=== PATIENT | female | born 1980 | race Hispanic/Latino ===

== ENCOUNTER 2018-05-16 09:25 | Emergency (ER) | payer SELFPAY ==
[2018-05-16 09:58] LABS: APPEARANCE,URINE Clear (CLEAR); BILIRUBIN,URINE Negative (NEGATIVE); COLOR,URINE Yellow (YELLOW); GLUCOSE, URINE (UA) Negative (NEGATIVE); KETONES,URINE Negative (NEGATIVE); LEUKOCYTE ESTERASE ,URINE Negative (NEGATIVE); NITRATE,URINE Negative (NEGATIVE); OCCULT BLOOD,URINE Negative (NEGATIVE); PH,URINE 7.5 (5.0-8.0); PROTEIN,URINE Negative (NEGATIVE); UROBILINOGEN,URINE 0.2 mg/dL (0.2-1.0)
[2018-05-16 10:07] LABS: HCG,QUAL RESULT NEGATIVE (NEGATIVE)
[2018-05-16] MEDS ORDERED: LIDOCAINE HCL-MPF 1% 2ML VIAL ONE (10:20)
[2018-05-16] MEDS ORDERED: CEFTRIAXONE SODIUM 500 MG VIAL ONE (10:20)
[2018-05-16] MEDS ORDERED: AZITHROMYCIN 250 MG TABLET PO ONE (10:21)
== END 2018-05-16 10:40 | disposition home or self-care (01) ==
LOC: EDH 09:25
DX: N34.2 Other urethritis (principal); I10 Essential (primary) hypertension; Z88.1 Allergy status to other antibiotic agents
CPT/HCPCS: 81003; 81025; 87088; 87486; 87797; 96372; 99283; J0696; J3490

== ENCOUNTER 2018-06-13 20:50 | Emergency (ER) | payer OTHER ==
[2018-06-13] MEDS ORDERED: AMOXICILLIN/POTASSIUM CLAV 500-125 TABLET PO ONE (21:13)
[2018-06-13] MEDS ORDERED: ACETAMINOPHEN EXTRA STRENGTH 500 MG TABLET ONE (21:13)
== END 2018-06-13 21:26 | disposition home or self-care (01) ==
LOC: EDH 20:50
DX: S50.11XA Contusion of right forearm, initial encounter (principal); L08.9 Local infection of the skin and subcutaneous tissue, unspecified; Z72.0 Tobacco use; W50.3XXA Accidental bite by another person, initial encounter; Y93.89 Activity, other specified; Y92.89 Other specified places as the place of occurrence of the external cause; Y99.8 Other external cause status

== ENCOUNTER 2019-04-23 11:34 | Emergency (ER) | payer SELFPAY ==
[2019-04-23] MEDS ORDERED: BENZOCAINE/LANOLIN/ALOE VERA 60 ML AEROSOL TP ONE (12:06)
== END 2019-04-23 12:55 | disposition home or self-care (01) ==
LOC: EDH 11:34
DX: S01.01XA Laceration without foreign body of scalp, initial encounter (principal); I10 Essential (primary) hypertension; W18.09XA Striking against other object with subsequent fall, initial encounter; Y93.89 Activity, other specified; Y92.89 Other specified places as the place of occurrence of the external cause; Y99.8 Other external cause status
CPT/HCPCS: 12002; 99282

== ENCOUNTER 2019-04-30 13:52 | Emergency (ER) | payer SELFPAY | END 2019-04-30 14:13 | disposition home or self-care (01) | LOC: EDH 13:52 | DX: S01.01XD Laceration without foreign body of scalp, subsequent encounter (principal); I10 Essential (primary) hypertension; Z98.890 Other specified postprocedural states; Z87.891 Personal history of nicotine dependence; X58.XXXD Exposure to other specified factors, subsequent encounter | CPT/HCPCS: 99281 ==

== ENCOUNTER 2020-08-12 07:12 | Emergency (ER) | payer OTHER ==
[~2020-08-12] VITALS: Ht 152.4 cm; Wt 68.9 kg
[2020-08-12 07:13] VITALS: BP 142/97
[2020-08-12 07:39] LABS: BASOPHILS % (AUTO) 0.4 % (0.0-5.0); EOSINOPHILS % (AUTO) 1.9 % (0.0-8.0); HEMATOCRIT 36.2 % (36-48); LYMPHOCYTES % (AUTO) 34.8 % (21.0-51.0); MEAN CORPUSCULAR HEMOGLOBIN 27.4 pg (27.0-33.0); MEAN CORPUSCULAR HGB CONC 31.5 g/dL (32.0-36.0); MONOCYTES % (AUTO) 6.7 % (3.0-13.0); NEUTROPHILS % (AUTO) 56.2 % (40.0-77.0); PLATELET COUNT (AUTO) 231 K/uL (130-400); RED BLOOD CELL COUNT(AUTO) 4.16 MIL/uL (4.00-5.50); RED CELL DISTRIBUTION WIDTH 13.9 % (11.0-15.5); WHITE BLOOD COUNT (AUTO) 5.3 K/uL (4.8-10.8)
[2020-08-12 07:41] LABS: APPEARANCE,URINE Clear (CLEAR); BILIRUBIN,URINE Negative (NEGATIVE); COLOR,URINE Yellow (YELLOW); GLUCOSE, URINE (UA) Negative (NEGATIVE); KETONES,URINE Negative (NEGATIVE); LEUKOCYTE ESTERASE ,URINE Negative (NEGATIVE); NITRATE,URINE Negative (NEGATIVE); OCCULT BLOOD,URINE Moderate (NEGATIVE); PH,URINE 6.5 (5.0-8.0); PROTEIN,URINE Negative (NEGATIVE); UROBILINOGEN,URINE 0.2 mg/dL (0.2-1.0)
[2020-08-12 07:56] LABS: ALBUMIN 3.4 g/dL (3.5-5.0); BILIRUBIN,TOTAL 0.2 mg/dL (0.2-1.0); CREATININE 0.8 mg/dL (0.5-1.5); POTASSIUM 3.5 mmol/L (3.5-5.1); TOTAL PROTEIN, SERUM 7.3 g/dL (6.0-8.3)
[2020-08-12 08:25] LABS: RBC,URINE 0-1 /HPF (0-1); WBC,URINE 0-1 /HPF (0-1)
[2020-08-12 08:26] LABS: BACTERIA,URINE None Seen /HPF (None Seen); SQUAMOUS EPITHELIAL CELL,UR Few /HPF (0-2)
[2020-08-12] MEDS ORDERED: NAPR-1180 PO (09:34)
[2020-08-12 09:36] VITALS: BP 134/78
== END 2020-08-12 10:01 | disposition home or self-care (01) ==
LOC: EDH 07:12
DX: S39.012A Strain of muscle, fascia and tendon of lower back, initial encounter (principal); X58.XXXA Exposure to other specified factors, initial encounter; Y93.01 Activity, walking, marching and hiking; Y92.89 Other specified places as the place of occurrence of the external cause; Y99.8 Other external cause status
CPT/HCPCS: 36415; 80053; 81001; 82150; 83690; 84702; 85025

== ENCOUNTER 2020-09-05 05:13 | Emergency (ER) | payer OTHER ==
[~2020-09-05] VITALS: Ht 152.4 cm; Wt 73.0 kg
[~2020-09-05 05:13] MED LIST: NAPR-1180 PO
[2020-09-05 05:28] VITALS: BP 154/80
[2020-09-05] MEDS ORDERED: ERYTHROMYCIN BASE 0.5% OPHTH OINT 1 GM TUBE ONE (05:41)
[2020-09-05] MEDS ORDERED: ERYT1OIN7 OP (05:45)
[2020-09-05] MEDS ORDERED: ERYTHROMYCIN BASE 0.5% OPHTH OINT 1 GM TUBE OU SCH (06:00)
[2020-09-05] MEDS ORDERED: DEXAMETHASONE 4 MG TAB PO SCH (06:00)
== END 2020-09-05 06:41 | disposition home or self-care (01) ==
LOC: EDH 05:13
DX: H01.006 Unspecified blepharitis left eye, unspecified eyelid (principal); H01.003 Unspecified blepharitis right eye, unspecified eyelid; Z98.890 Other specified postprocedural states; Z79.899 Other long term (current) drug therapy

== ENCOUNTER 2020-12-10 17:59 | Emergency (ER) | payer OTHER ==
[~2020-12-10] VITALS: Ht 152.4 cm; Wt 75.3 kg
[~2020-12-10 17:59] MED LIST changes: +ERYT1OIN7 OP
[2020-12-10 18:25] LABS: APPEARANCE,URINE Clear (CLEAR); BILIRUBIN,URINE Negative (NEGATIVE); COLOR,URINE Dark Yellow (YELLOW); GLUCOSE, URINE (UA) Negative (NEGATIVE); KETONES,URINE Negative (NEGATIVE); LEUKOCYTE ESTERASE ,URINE Trace (NEGATIVE); NITRATE,URINE Positive (NEGATIVE); OCCULT BLOOD,URINE Negative (NEGATIVE); PROTEIN,URINE Negative (NEGATIVE)
[2020-12-10 18:27] LABS: HCG,QUAL RESULT NEGATIVE (NEGATIVE)
[2020-12-10 18:47] LABS: BACTERIA,URINE Few /HPF (None Seen)
[2020-12-10 18:48] LABS: MUCUS,URINE Few LPF (None Seen); SQUAMOUS EPITHELIAL CELL,UR Few /HPF (0-2)
[2020-12-10] MEDS ORDERED: SULF1TAB42 PO (19:39)
[2020-12-10] MEDS ORDERED: SULFAMETHOX-TMP DS 800/160 TAB ONE (19:43)
[2020-12-10 19:47] VITALS: BP 138/76
[2020-12-10] MEDS ORDERED: SULFAMETHOX-TMP DS 800/160 TAB PO SCH (20:00)
== END 2020-12-10 19:46 | disposition home or self-care (01) ==
LOC: EDH 17:59
DX: N39.0 Urinary tract infection, site not specified (principal); I10 Essential (primary) hypertension; Z79.1 Long term (current) use of non-steroidal anti-inflammatories (NSAID)
CPT/HCPCS: 81001; 81025; 87088

== ENCOUNTER 2021-03-24 14:36 | Emergency (ER) | payer SELFPAY ==
[~2021-03-24] VITALS: Ht 152.4 cm; Wt 69.9 kg
[~2021-03-24 14:36] MED LIST changes: +SULF1TAB42 PO
[2021-03-24 16:14] VITALS: BP 121/55
== END 2021-03-24 16:52 | disposition home or self-care (01) ==
LOC: EDH 14:36
DX: H57.89 Other specified disorders of eye and adnexa (principal); Z79.1 Long term (current) use of non-steroidal anti-inflammatories (NSAID); Z79.899 Other long term (current) drug therapy
CPT/HCPCS: 99282

== ENCOUNTER 2021-09-03 16:27 | Emergency (ER) | payer BC ==
[~2021-09-03] VITALS: Ht 152.4 cm; Wt 74.8 kg
[2021-09-03 16:55] LABS: BASOPHILS % (AUTO) 0.3 % (0.0-5.0); EOSINOPHILS % (AUTO) 0.7 % (0.0-8.0); HEMATOCRIT 33.4 % (36-48); LYMPHOCYTES % (AUTO) 30.3 % (21.0-51.0); MEAN CORPUSCULAR HEMOGLOBIN 25.6 pg (27.0-33.0); MEAN CORPUSCULAR HGB CONC 31.4 g/dL (32.0-36.0); MEAN CORPUSCULAR VOLUME 81.5 fL (79-99); MONOCYTES % (AUTO) 7.9 % (3.0-13.0); NEUTROPHILS % (AUTO) 60.5 % (40.0-77.0); PLATELET COUNT (AUTO) 256 K/uL (130-400); RED CELL DISTRIBUTION WIDTH 14.7 % (11.0-15.5); WHITE BLOOD COUNT (AUTO) 6.7 K/uL (4.8-10.8)
[2021-09-03 17:01] LABS: APPEARANCE,URINE CLEAR (CLEAR); BILIRUBIN,URINE NEGATIVE (NEGATIVE); COLOR,URINE YELLOW (YELLOW); GLUCOSE, URINE (UA) NEGATIVE (NEGATIVE); KETONES,URINE NEGATIVE (NEGATIVE); LEUKOCYTE ESTERASE ,URINE NEGATIVE (NEGATIVE); NITRATE,URINE NEGATIVE (NEGATIVE); OCCULT BLOOD,URINE NEGATIVE (NEGATIVE); PROTEIN,URINE NEGATIVE (NEGATIVE); UROBILINOGEN,URINE 0.2 mg/dL (0.2-1.0)
[2021-09-03 17:05] LABS: CREATININE 0.9 mg/dL (0.5-1.5); POTASSIUM 3.7 mmol/L (3.5-5.1)
[2021-09-03 17:10] LABS: ALBUMIN 3.6 g/dL (3.5-5.0); TOTAL PROTEIN, SERUM 7.6 g/dL (6.0-8.3)
[2021-09-03] MEDS ORDERED: 0.9%NACL 1000ML 1,000 ML IV ONE (17:30)
[2021-09-03] MEDS ORDERED: KETOROLAC 15MG/ML VIAL (15MG/ML) IV ONE (17:30)
[2021-09-03] MEDS ORDERED: ONDA4TAB10 PO (18:55)
[2021-09-03] MEDS ORDERED: NAPR500T6 PO (18:55)
[2021-09-03 19:05] VITALS: BP 124/68
== END 2021-09-03 19:07 | disposition home or self-care (01) ==
LOC: EDH 16:27
DX: K80.20 Calculus of gallbladder without cholecystitis without obstruction (principal); Z79.1 Long term (current) use of non-steroidal anti-inflammatories (NSAID); Z82.49 Family history of ischemic heart disease and other diseases of the circulatory system
CPT/HCPCS: 99284; 96374; 76705; 96361; 80053; 83690; 85025; 81003; 81025; 36415; J7030; J1885

== ENCOUNTER 2022-11-30 19:31 | Emergency (ER) | payer BC ==
[~2022-11-30] VITALS: Ht 152.4 cm; Wt 77.1 kg
[~2022-11-30 19:31] MED LIST changes: +NAPR500T6 PO; +ONDA4TAB10 PO
[2022-11-30] MEDS ORDERED: ONDANSETRON 4MG INJ IVP ONE (20:00)
[2022-11-30] MEDS ORDERED: MORPHINE 2 MG SYG IVP ONE (20:00)
[2022-11-30 20:10] LABS: BASOPHILS # (AUTO) 0.02 K/uL (0.00-0.20); BASOPHILS % (AUTO) 0.2 % (0.0-5.0); EOSINOPHILS # (AUTO) 0.03 K/uL (0.00-0.70); EOSINOPHILS % (AUTO) 0.3 % (0.0-8.0); HEMATOCRIT 33.6 % (36-48); IMMATURE GRANULOCYTE ABSOLUTE 0.03 K/uL (0-1); LYMPHOCYTES # (AUTO) 1.6 K/uL (1.0-4.8); LYMPHOCYTES % (AUTO) 15.7 % (21.0-51.0); MEAN CORPUSCULAR HEMOGLOBIN 26.3 pg (27.0-33.0); MEAN CORPUSCULAR HGB CONC 31.8 g/dL (32.0-36.0); MEAN CORPUSCULAR VOLUME 82.6 fL (79-99); MONOCYTES # (AUTO) 0.6 K/uL (0.1-1.0); MONOCYTES % (AUTO) 5.6 % (3.0-13.0); NEUTROPHILS # (AUTO) 7.7 K/uL (1.8-7.7); NEUTROPHILS % (AUTO) 77.9 % (40.0-77.0); PLATELET COUNT (AUTO) 249 K/uL (130-400); RED BLOOD CELL COUNT(AUTO) 4.07 MIL/uL (4.00-5.50); RED CELL DISTRIBUTION WIDTH 15.9 % (11.0-15.5); WHITE BLOOD COUNT (AUTO) 9.9 K/uL (4.8-10.8)
[2022-11-30 20:12] LABS: APPEARANCE,URINE CLOUDY (CLEAR); BILIRUBIN,URINE NEGATIVE (NEGATIVE); COLOR,URINE LIGHT-YELLOW (YELLOW); GLUCOSE, URINE (UA) NEGATIVE (NEGATIVE); KETONES,URINE NEGATIVE (NEGATIVE); LEUKOCYTE ESTERASE ,URINE 500 Leu/uL (NEGATIVE); NITRATE,URINE NEGATIVE (NEGATIVE); OCCULT BLOOD,URINE LARGE (NEGATIVE); PH,URINE 6.5 (5.0-8.0); PROTEIN,URINE 20 mg/dL (NEGATIVE); UROBILINOGEN,URINE 0.2 mg/dL (0.2-1.0)
[2022-11-30 20:13] LABS: ADD UA MICROSCOPIC YES
[2022-11-30 20:19] LABS: CREATININE 0.9 mg/dL (0.5-1.5); POTASSIUM 3.6 mmol/L (3.5-5.1)
[2022-11-30 20:23] LABS: ALBUMIN 3.4 g/dL (3.5-5.0); BILIRUBIN,TOTAL 0.2 mg/dL (0.2-1.0); TOTAL PROTEIN, SERUM 7.7 g/dL (6.0-8.3)
[2022-11-30 20:26] LABS: BACTERIA,URINE RARE /HPF (None Seen); MUCUS,URINE RARE LPF (None Seen); RBC,URINE 26-50 /HPF (0-1); SQUAMOUS EPITHELIAL CELL,UR RARE /HPF (0-2); WBC,URINE >100 /HPF (0-1)
[2022-11-30] MEDS ORDERED: IOHEXOL 350 MG/ML 100ML INFUS..BTL IV ONE (20:33)
[2022-11-30] MEDS ORDERED: CEFU500T67 PO (22:17)
[2022-11-30] MEDS ORDERED: IBUP-1493 PO (22:17)
[2022-11-30] MEDS ORDERED: CEFTRIAXONE 1G VIAL IVPB ONE (22:30)
[2022-11-30 22:54] VITALS: BP 128/76; PULSE 73; RESP 16; O2SAT 99
== END 2022-11-30 22:56 | disposition home or self-care (01) ==
LOC: EDH 19:32
DX: N39.0 Urinary tract infection, site not specified (principal); K80.20 Calculus of gallbladder without cholecystitis without obstruction; D64.9 Anemia, unspecified; Z79.899 Other long term (current) drug therapy; Z90.49 Acquired absence of other specified parts of digestive tract; Z98.890 Other specified postprocedural states
CPT/HCPCS: 99285; 74176; 96365; 76856; 96375; 82150; 80053; 83690; 85025; 87088; 81001; 81025; 36415; J2270; J0696; J2405; Q9967

== ENCOUNTER 2023-01-01 06:37 | Emergency (ER) | payer BC ==
[~2023-01-01] VITALS: Ht 152.4 cm; Wt 74.8 kg
[~2023-01-01 06:37] MED LIST changes: +CEFU500T67 PO; -ERYT1OIN7 OP; +IBUP-1493 PO; -NAPR-1180 PO; -NAPR500T6 PO; -ONDA4TAB10 PO; -SULF1TAB42 PO
[2023-01-01] MEDS ORDERED: KETOROLAC 30MG VIAL (30MG/ML) IVP ONE (07:30)
[2023-01-01] MEDS ORDERED: LACTATED RINGERS 1000ML 1,000 ML IV ONE (07:30)
[2023-01-01 07:42] LABS: BASOPHILS # (AUTO) 0.03 K/uL (0.00-0.20); BASOPHILS % (AUTO) 0.5 % (0.0-5.0); EOSINOPHILS # (AUTO) 0.29 K/uL (0.00-0.70); EOSINOPHILS % (AUTO) 4.6 % (0.0-8.0); HEMATOCRIT 30.3 % (36-48); IMMATURE GRANULOCYTE ABSOLUTE 0.02 K/uL (0-1); LYMPHOCYTES # (AUTO) 1.9 K/uL (1.0-4.8); LYMPHOCYTES % (AUTO) 29.2 % (21.0-51.0); MEAN CORPUSCULAR HEMOGLOBIN 26.6 pg (27.0-33.0); MONOCYTES # (AUTO) 0.4 K/uL (0.1-1.0); MONOCYTES % (AUTO) 6.6 % (3.0-13.0); NEUTROPHILS # (AUTO) 3.7 K/uL (1.8-7.7); NEUTROPHILS % (AUTO) 58.8 % (40.0-77.0); PLATELET COUNT (AUTO) 304 K/uL (130-400); RED BLOOD CELL COUNT(AUTO) 3.65 MIL/uL (4.00-5.50); RED CELL DISTRIBUTION WIDTH 15.4 % (11.0-15.5); WHITE BLOOD COUNT (AUTO) 6.3 K/uL (4.8-10.8)
[2023-01-01] MEDS ORDERED: ONDANSETRON 4MG INJ ONE (07:46)
[2023-01-01 07:53] LABS: CREATININE 0.7 mg/dL (0.5-1.5); POTASSIUM 3.7 mmol/L (3.5-5.1)
[2023-01-01] MEDS ORDERED: ONDANSETRON 4MG INJ IVP ONE (08:00)
[2023-01-01 08:13] LABS: ALBUMIN 3.3 g/dL (3.5-5.0); BILIRUBIN,TOTAL 0.2 mg/dL (0.2-1.0); TOTAL PROTEIN, SERUM 6.9 g/dL (6.0-8.3)
[2023-01-01] MEDS ORDERED: ACET160S2 PO (08:33)
[2023-01-01] MEDS ORDERED: PANT40TA54 PO (08:33)
[2023-01-01] MEDS ORDERED: ONDA22I SL (08:33)
[2023-01-01 08:53] LABS: APPEARANCE,URINE CLEAR (CLEAR); BILIRUBIN,URINE NEGATIVE (NEGATIVE); COLOR,URINE COLORLESS (YELLOW); GLUCOSE, URINE (UA) NEGATIVE (NEGATIVE); KETONES,URINE NEGATIVE (NEGATIVE); LEUKOCYTE ESTERASE ,URINE NEGATIVE Leu/uL (NEGATIVE); NITRATE,URINE NEGATIVE (NEGATIVE); OCCULT BLOOD,URINE NEGATIVE (NEGATIVE); PROTEIN,URINE NEGATIVE (NEGATIVE); UROBILINOGEN,URINE 0.2 mg/dL (0.2-1.0)
[2023-01-01 09:01] VITALS: BP 115/68; PULSE 64; RESP 17; O2SAT 97
[2023-01-01 09:08] LABS: ADD UA MICROSCOPIC NO
== END 2023-01-01 09:02 | disposition home or self-care (01) ==
LOC: EDH 06:37
DX: K29.70 Gastritis, unspecified, without bleeding (principal); K21.9 Gastro-esophageal reflux disease without esophagitis; F17.200 Nicotine dependence, unspecified, uncomplicated; Z79.1 Long term (current) use of non-steroidal anti-inflammatories (NSAID); Z90.49 Acquired absence of other specified parts of digestive tract
CPT/HCPCS: 99284; 96374; 96361; 96375; 84484; 80053; 84702; 83690; 85025; 81003; 36415; J7120; J2405; J1885

== ENCOUNTER 2023-07-12 14:01 | Emergency (ER) | payer BC ==
[~2023-07-12] VITALS: Ht 152.4 cm; Wt 74.8 kg
[~2023-07-12 14:01] MED LIST changes: +ACET160S2 PO; +ONDA22I SL; +PANT40TA54 PO
[2023-07-12 14:02] VITALS: BP 146/79; PULSE 70; RESP 16
[2023-07-12] MEDS ORDERED: IBUP-2077 PO (14:12)
[2023-07-12] MEDS ORDERED: CLIN-141 PO (14:12)
[2023-07-12] MEDS: KETOROLAC 60 MG VIAL (30MG/ML) IM ONE (14:59)
== END 2023-07-12 14:44 | disposition home or self-care (01) ==
LOC: EDH 14:01
DX: S02.5XXA Fracture of tooth (traumatic), initial encounter for closed fracture (principal); K02.9 Dental caries, unspecified; X58.XXXA Exposure to other specified factors, initial encounter; Y93.89 Activity, other specified; Y92.89 Other specified places as the place of occurrence of the external cause; Y99.8 Other external cause status; F17.200 Nicotine dependence, unspecified, uncomplicated; Z79.899 Other long term (current) drug therapy; Z90.710 Acquired absence of both cervix and uterus; Z90.49 Acquired absence of other specified parts of digestive tract; Z98.890 Other specified postprocedural states
CPT/HCPCS: 99284; 96372; J1885

== ENCOUNTER 2023-09-27 16:38 | Emergency (ER) | payer BC ==
[~2023-09-27] VITALS: Ht 152.4 cm; Wt 74.8 kg
[~2023-09-27 16:38] MED LIST changes: +CLIN-141 PO; +IBUP-2077 PO
[2023-09-27 16:41] VITALS: BP 137/98; PULSE 81; RESP 16
[2023-09-27 20:39] LABS: BASOPHILS # (AUTO) 0.02 K/uL (0.00-0.20); BASOPHILS % (AUTO) 0.3 % (0.0-5.0); EOSINOPHILS # (AUTO) 0.03 K/uL (0.00-0.70); EOSINOPHILS % (AUTO) 0.4 % (0.0-8.0); HEMATOCRIT 38.4 % (36-48); IMMATURE GRANULOCYTE ABSOLUTE 0.01 K/uL (0-1); LYMPHOCYTES # (AUTO) 1.7 K/uL (1.0-4.8); MEAN CORPUSCULAR HEMOGLOBIN 28.2 pg (27.0-33.0); MEAN CORPUSCULAR HGB CONC 32.3 g/dL (32.0-36.0); MEAN CORPUSCULAR VOLUME 87.3 fL (79-99); MONOCYTES # (AUTO) 0.4 K/uL (0.1-1.0); MONOCYTES % (AUTO) 5.9 % (3.0-13.0); NEUTROPHILS # (AUTO) 5.2 K/uL (1.8-7.7); NEUTROPHILS % (AUTO) 70.3 % (40.0-77.0); PLATELET COUNT (AUTO) 258 K/uL (130-400); WHITE BLOOD COUNT (AUTO) 7.4 K/uL (4.8-10.8)
[2023-09-27 20:53] LABS: CREATININE 0.8 mg/dL (0.5-1.0); POTASSIUM 3.5 mmol/L (3.5-5.1)
[2023-09-27] MEDS ORDERED: AMOX1TAB16 PO (21:44)
[2023-09-27] MEDS ORDERED: KETOROLAC 15MG/ML VIAL (15MG/ML) IV ONE (22:00)
[2023-09-27] MEDS ORDERED: DEXAMETHASONE SOD PHOSPHATE 4 MG/ML 1ML VIAL IVP ONE (22:00)
[2023-09-27] MEDS ORDERED: cefTRIAXone 1G VIAL IV ONE (22:00)
[2023-09-27] MEDS: DEXAMETHASONE SOD PHOSPHATE 4 MG/ML 1ML VIAL IM ONE (23:40)
[2023-09-27] MEDS: cefTRIAXone 1G VIAL IM ONE (23:40)
[2023-09-27] MEDS: KETOROLAC 15MG/ML VIAL (15MG/ML) IM ONE (23:40)
== END 2023-09-27 23:58 | disposition home or self-care (01) ==
LOC: EDH 16:38
DX: K04.7 Periapical abscess without sinus (principal); Z79.899 Other long term (current) drug therapy; Z90.49 Acquired absence of other specified parts of digestive tract; Z90.710 Acquired absence of both cervix and uterus; Z98.890 Other specified postprocedural states
CPT/HCPCS: 99284; 80048; 84703; 85025; 83605; 36415; 96372 ×3; 84145; J1100; J0696; J1885

== ENCOUNTER 2023-10-13 12:44 | Emergency (ER) | payer BC ==
[~2023-10-13] VITALS: Ht 152.4 cm; Wt 77.1 kg
[~2023-10-13 12:44] MED LIST changes: +AMOX1TAB16 PO
[2023-10-13] MEDS ORDERED: KETO10TA2 PO (14:46)
[2023-10-13] MEDS ORDERED: CLIN-141 PO (14:46)
[2023-10-13] MEDS: CLINDAMYCIN IVPB 300MG/50ML 50 ML IV SCH (15:48)
[2023-10-13] MEDS: ONDANSETRON 4MG INJ IVP ONE (15:48)
[2023-10-13] MEDS: MORPHINE 2 MG SYG IVP ONE (15:48)
[2023-10-13] MEDS: dexaMETHasone SOD PHOSPHATE 4 MG/ML 1ML VIAL IVP ONE (15:49)
[2023-10-13] MEDS: KETOROLAC 15MG/ML VIAL (15MG/ML) IV ONE (15:49)
[2023-10-13 16:09] VITALS: BP 127/78; PULSE 72; RESP 16; O2SAT 100
== END 2023-10-13 16:15 | disposition home or self-care (01) ==
LOC: EDH 12:44
DX: K04.7 Periapical abscess without sinus (principal); F17.200 Nicotine dependence, unspecified, uncomplicated; Z79.899 Other long term (current) drug therapy; Z90.49 Acquired absence of other specified parts of digestive tract; Z90.710 Acquired absence of both cervix and uterus; Z98.890 Other specified postprocedural states
CPT/HCPCS: 99284; 96374; 96375; J1100; J2270; J2405; J1885; J3490

== ENCOUNTER 2023-11-02 07:23 | Emergency (ER) | payer BC ==
[~2023-11-02] VITALS: Ht 154.9 cm; Wt 73.5 kg
[2023-11-02 07:23] VITALS: TEMP 98.3
[~2023-11-02 07:23] MED LIST changes: +KETO10TA2 PO
[2023-11-02 07:46] LABS: BASOPHILS # (AUTO) 0.02 K/uL (0.00-0.20); BASOPHILS % (AUTO) 0.3 % (0.0-5.0); EOSINOPHILS # (AUTO) 0.01 K/uL (0.00-0.70); EOSINOPHILS % (AUTO) 0.2 % (0.0-8.0); HEMATOCRIT 36.7 % (36-48); IMMATURE GRANULOCYTE ABSOLUTE 0.02 K/uL (0-1); LYMPHOCYTES % (AUTO) 31.9 % (21.0-51.0); MEAN CORPUSCULAR HEMOGLOBIN 27.9 pg (27.0-33.0); MEAN CORPUSCULAR HGB CONC 32.4 g/dL (32.0-36.0); MEAN CORPUSCULAR VOLUME 86.2 fL (79-99); MONOCYTES # (AUTO) 0.3 K/uL (0.1-1.0); MONOCYTES % (AUTO) 5.2 % (3.0-13.0); NEUTROPHILS # (AUTO) 3.8 K/uL (1.8-7.7); NEUTROPHILS % (AUTO) 62.1 % (40.0-77.0); PLATELET COUNT (AUTO) 259 K/uL (130-400); RED BLOOD CELL COUNT(AUTO) 4.26 MIL/uL (4.00-5.50); RED CELL DISTRIBUTION WIDTH 13.9 % (11.0-15.5); WHITE BLOOD COUNT (AUTO) 6.1 K/uL (4.8-10.8)
[2023-11-02 08:03] LABS: ALBUMIN 3.6 g/dL (3.5-5.0); BILIRUBIN,TOTAL 0.1 mg/dL (0.2-1.0); CREATININE 0.7 mg/dL (0.5-1.0); POTASSIUM 3.7 mmol/L (3.5-5.1)
[2023-11-02 08:08] LABS: ADD UA MICROSCOPIC NO; APPEARANCE,URINE CLEAR (CLEAR); BILIRUBIN,URINE NEGATIVE (NEGATIVE); COLOR,URINE LIGHT-YELLOW (YELLOW); GLUCOSE, URINE (UA) NEGATIVE (NEGATIVE); KETONES,URINE NEGATIVE (NEGATIVE); LEUKOCYTE ESTERASE ,URINE NEGATIVE Leu/uL (NEGATIVE); NITRATE,URINE NEGATIVE (NEGATIVE); OCCULT BLOOD,URINE NEGATIVE (NEGATIVE); PH,URINE 6.5 (5.0-8.0); PROTEIN,URINE NEGATIVE (NEGATIVE); UROBILINOGEN,URINE 0.2 mg/dL (0.2-1.0)
[2023-11-02 08:20] LABS: B-TYPE NATRIURETIC PEPTIDE 5 pg/mL (0-100)
[2023-11-02] MEDS: FAMOTIDINE 20MG VIAL IV ONE (08:37)
[2023-11-02] MEDS: ketOROlac 15MG/ML VIAL (15MG/ML) IV ONE (08:37)
[2023-11-02 10:00] VITALS: BP 138/79; PULSE 76; RESP 20; O2SAT 99
[2023-11-02] MEDS ORDERED: PANT40TA54 PO (10:17)
== END 2023-11-02 10:45 | disposition home or self-care (01) ==
LOC: EDH 07:23
DX: K21.9 Gastro-esophageal reflux disease without esophagitis (principal); R07.89 Other chest pain; F17.200 Nicotine dependence, unspecified, uncomplicated; Z79.899 Other long term (current) drug therapy; Z90.49 Acquired absence of other specified parts of digestive tract; Z90.710 Acquired absence of both cervix and uterus; Z98.890 Other specified postprocedural states
CPT/HCPCS: 99284; 96374; 71045; 96375; 82550; 84484; 80053; 83880; 85025; 81003; 36415; 93005; J3490; J1885

== ENCOUNTER 2024-05-07 17:21 | Emergency (ER) | payer BC ==
[~2024-05-07] VITALS: Ht 152.4 cm; Wt 72.6 kg
[2024-05-07 18:21] LABS: APPEARANCE,URINE CLOUDY (CLEAR); BILIRUBIN,URINE NEGATIVE (NEGATIVE); COLOR,URINE YELLOW (YELLOW); GLUCOSE, URINE (UA) NEGATIVE (NEGATIVE); KETONES,URINE NEGATIVE (NEGATIVE); LEUKOCYTE ESTERASE ,URINE 500 Leu/uL (NEGATIVE); NITRATE,URINE NEGATIVE (NEGATIVE); OCCULT BLOOD,URINE SMALL (NEGATIVE); PROTEIN,URINE 30 mg/dL (NEGATIVE); UROBILINOGEN,URINE 0.2 mg/dL (0.2-1.0)
[2024-05-07 18:23] LABS: HCG,QUALITATIVE URINE NEGATIVE (NEGATIVE)
[2024-05-07 18:25] LABS: ADD UA MICROSCOPIC YES
[2024-05-07 18:28] LABS: BACTERIA,URINE FEW /HPF (None Seen); MUCUS,URINE RARE LPF (None Seen); NON-SQUAMOUS EPITHELIAL CELL 2 /HPF (0-2); RBC,URINE 26-50 /HPF (0-1); SQUAMOUS EPITHELIAL CELL,UR FEW /HPF (0-2); UNCLASSIFIED CRYSTAL 4 /HPF (None Seen); WBC CLUMP RARE /HPF (0-1); WBC,URINE 51-100 /HPF (0-1)
[2024-05-07] MEDS ORDERED: MACR100 PO (18:49)
--- NOTE | 2024-05-07 18:49 | ERN ---
General Chief Complaint: Painful Urination Stated Complaint: PROBLEMS URINATING Time Seen by MD: 17:22 Time Seen by Midlevel: 17:22 Source: patient History of Present Illness Initial Comments Patient is a 43-year-old female presenting to the emergency department for evaluation of dysuria and increased urinary frequency. Denies any suprapubic abdominal pain, fever, or flank pain. Patient states this feel like the previous time she has been diagnosed with a urinary tract infection. Allergies: Coded Allergies: No Known Drug Allergies (Verified Allergy, 11/13/12) Home Meds Active Scripts Nitrofurantoin/Nitrofuran Mac (Macrobid) 100 Mg Cap, 1 CAP PO BID for 7 Days, #14 CAP 0 Refills Prov:DENA SOLIS 05/07/24 Pantoprazole Sodium (Pantoprazole Sodium) 40 Mg Tablet.dr, 40 MG PO DAILY for 30 Days, #30 TAB Prov:GLADIS SANDOVAL MD 11/02/23 Ketorolac Tromethamine (Ketorolac Tromethamine) 10 Mg Tablet, 10 MG PO BID for 5 Days, #10 TAB Prov:DENA SOLIS 10/13/23 Clindamycin HCl (Clindamycin HCl) 300 Mg Capsule, 1 CAP PO TID for 10 Days, #30 CAP 0 Refills Prov:DENA SOLIS 10/13/23 Amoxicillin/Potassium Clav (Amox Tr-K Clv 875-125 mg Tab) 875 Mg-125 Mg Tablet, 1 EACH PO BID for 10 Days, #20 TAB 0 Refills Prov:DENA SOLIS 09/27/23 Clindamycin HCl (Clindamycin HCl) 300 Mg Capsule, 1 CAP PO QID for 10 Days, #40 CAP 0 Refills Prov:DONATO TUBBS NP 07/12/23 Ibuprofen (Ibuprofen 800 mg Tab) 800 Mg Tab, 800 MG PO Q8H PRN for fever or pain, #30 TAB 0 Refills Prov:DONATO TUBBS NP 07/12/23 Pantoprazole Sodium (Pantoprazole Sodium) 40 Mg Tablet.dr, 40 MG PO DAILY, #30 TAB Prov:GENE WARE MD 01/01/23 Ondansetron HCl (Zofran) 4 Mg/2 Ml Inj, 8 MG SL Q8H, #21 TAB.SL Prov:GENE WARE MD 01/01/23 Acetaminophen (Tylenol Elixir) 325 Mg/10.15 Ml Solution, 500 MG PO Q6HPRN PRN for PAIN, #30 TAB Prov:GENE WARE MD 01/01/23 Cefuroxime Axetil (Cefuroxime) 500 Mg Tablet, 500 MG PO BID, #20 TAB Prov:IRASEMA SANTIAGO MD 11/30/22 Ibuprofen (Motrin/Advil) 800 Mg Tab, 800 MG PO TID, #30 TAB Prov:IRASEMA SANTIAGO MD 11/30/22 Past Medical History Past Medical History: No Pertinent History Past Surgical History: Hysterectomy, Cholecystectomy, Family History Family History: HTN Social History Social History: Smokers, ETOH, Lives with family Female( History) : 4 Para: 3 Aborts: 1 ROS Dictation CONSTITUTIONAL: Negative except for HPI HEAD/FACE: Negative except for HPI EENT: Negative except for HPI RESPIRATORY: Negative except for HPI GASTROINTESTINAL/ABDOMINAL: Negative except for HPI GENITOURINARY: Negative except for HPI MUSCULOSKELETAL: Negative except for HPI INTEGUMENTARY: Negative except for HPI NEUROLOGICAL/PSYCH: Negative except for HPI HEMATOLOGIC/LYMPHATIC: Negative except for HPI All Systems Negative, Except as noted above. 13 point review of systems assessed and all negative except for above. Physical Exam Physical Exam Dictation Vital Signs reviewed General Appearance: Alert, oriented x 3, no acute distress, well developed, nourished. Head and Face: non-traumatic. Eyes: PERRL, pink conjunctivas, eyelid no trauma, anterior chamber with arcus senilis. Ears: Pinnas intact and no signs of trauma or erythema ear canals clear and no discharge TM no erythema Nose: No discharge, no bleeding. Oropharynx: Mouth normal, tongue pink, pharynx clear,no erythema, tonsils no exudates, no abscesses noted, mucous membrane moist Neck: Supple, non-tender, no thyromegaly, no masses, no JVD, no bruits Breast:Deferred Chest:No tenderness, no crepitus, no paradoxical movement, no retractions Lungs:Clear, well-ventilated, symmetric, no rales, no wheezing, no rhonchi, no stridor, good breath sounds bilaterally Heart: Regular rate, regular rhythm, no murmur, no gallops Vascular: no peripheral edema, Abdomen: Soft, positive bowel sounds, nondistended, no guarding, nontender, no rebound, no masses no hepatomegaly, no splenomegaly, no Sawyer's sign, no hernias. Rectal: Deferred Genital: Deferred Neurological: Normal speech, motor function intact, sensory function intact Musculoskeletal: Neck nontender, full range of motion, back nontender, full range of motion, Extremities: nontender, full range of motion Skin: Color pink, dry, no turgor, no rash, no lacerations, no abrasions, no c ontusions. Lymphatic: Deferred Results Laboratory and Microbiology Lab and Micro Result Laboratory Tests Test 05/07/24 17:55 Urine Color YELLOW (YELLOW) Urine Appearance CLOUDY (CLEAR) H Urine pH 6.0 (5.0-8.0) Urine Specific [place] 1.026 (1.001-1.031) Urine Protein 30 mg/dL (NEGATIVE) H Urine Glucose (UA) NEGATIVE mg/dL (NEGATIVE) Urine Ketones NEGATIVE mg/dL (NEGATIVE) Urine Occult Blood SMALL (NEGATIVE) H Urine Nitrate NEGATIVE (NEGATIVE) Urine Bilirubin NEGATIVE mg/dL (NEGATIVE) Urine Urobilinogen 0.2 mg/dL (0.2-1.0) Urine Leukocyte Esterase 500 Cassie/uL (NEGATIVE) H Urine RBC 26-50 /HPF (0-1) H Urine WBC 51-100 /HPF (0-1) H Urine WBC Clumps (Auto) RARE /HPF (0-1) Urine Squamous Epithelial Cells FEW /HPF (0-2) Urine Non-Squamous Epithelial Cells 2 /HPF (0-2) Urine Other Crystals (Auto) 4 /HPF (None Seen) Urine Bacteria FEW /HPF (None Seen) Urine HCG, Qualitative NEGATIVE (NEGATIVE) Labs Reviewed?: Yes MDM MDM: Differential diagnosis: Urinary tract infection, dysuria, hematuria There are no social concerns with this patient. Prescription drug management Prescriptions will include: Macrobid Medical management and examination interpretation discussions were had by me with other qualified healthcare professionals as indicated for the patient's care. ED Course Orders Procedure Category Date Status Time Urinalysis Profile LAB 05/07/24 Complete 17:48 ,Urine Test LAB 05/07/24 Complete 17:48 Culture Urine KAMILLA 05/07/24 In Process 18:25 Ceftriaxone 1g Vial PHA 05/07/24 Complete (Rocephine 1g Inj) 19:00 Current Medications Medications (Trade) Dose Ordered Sig/Ana Rosa Route PRN Reason Start Time Stop Time Status Last Admin Dose Admin Ceftriaxone Sodium (ROCEphine 1G INJ) 1 gm ONCE ONCE IM 05/07/24 19:00 05/07/24 19:01 DC 05/07/24 19:27 Vital Signs Date Time Temp Pulse Resp B/P (MAP) Pulse Ox O2 Delivery O2 Flow Rate FiO2 05/07/24 19:38 98.1 89 15 146/77 100 Room Air* 0 21 05/07/24 17:47 98.1 100 16 140/79 100 Room Air 0 DX & DISP Disposition: Discharge Departure Impression: Primary Impression: UTI (urinary tract infection) Condition: Stable Scripts Nitrofurantoin/Nitrofuran Mac (Macrobid) 100 Mg Cap 1 CAP PO BID for 7 Days, #14 CAP 0 Refills Prov: DENA SOLIS 05/07/24 Referrals: KRISTEN MENDOZA MD (PCP) I have reviewed the case, and I agree with, Diagnosis and Plan I performed the substantive portion of the visit. I have reviewed and personally made and approve the management plan that is documented in the note by myself or the POORNIMA. I acknowledge for responsibility for the patient's awa gement plan. DENA SOLIS May 07, 2024 18:49
[2024-05-07] MEDS: cefTRIAXone 1G VIAL IM ONE (19:27)
--- NOTE | 2024-05-07 19:29 | NUR ---
PT CARE ASSUMED AT THIS TIME
[2024-05-07 19:38] VITALS: BP 146/77; PULSE 89; RESP 15; TEMP 98.1; O2SAT 100
== END 2024-05-07 19:43 | disposition home or self-care (01) ==
LOC: EDH 17:21
DX: N39.0 Urinary tract infection, site not specified (principal); F17.200 Nicotine dependence, unspecified, uncomplicated; Z79.1 Long term (current) use of non-steroidal anti-inflammatories (NSAID); Z79.899 Other long term (current) drug therapy; Z90.49 Acquired absence of other specified parts of digestive tract; Z90.710 Acquired absence of both cervix and uterus
CPT/HCPCS: 99284; 87086 ×2; 87186; 81001; 81025; 96372; J0696

== ENCOUNTER 2024-06-25 13:11 | Emergency (ER) | payer BC ==
[~2024-06-25] VITALS: Ht 152.4 cm; Wt 76.7 kg
[~2024-06-25 13:11] MED LIST changes: +MACR100 PO
[2024-06-25 14:03] VITALS: TEMP 98.2
--- NOTE | 2024-06-25 14:07 | ERN ---
ED Note History of Present Illness Stated Complaint: BLEEDING FROM BUTT Chief Complaint: Rectal Bleed Time Seen by MD: 13:18 Time Seen by Midlevel: 13:20 Dictation: 43-year-old female coming in with complaints of blood when she has a bowel movement. Patient states her stool is not red but there has noticed some drops like Cj-Aid in the water turns pinkish. Patient states it has been going on for a week. Denies any lower abdominal pain. Allergies: Coded Allergies: No Known Drug Allergies (Verified Allergy, 11/13/12) Home Meds Active Scripts Nitrofurantoin/Nitrofuran Mac (Macrobid) 100 Mg Cap, 1 CAP PO BID for 7 Days, #14 CAP 0 Refills Prov:DENA SOLIS 05/07/24 Pantoprazole Sodium (Pantoprazole Sodium) 40 Mg Tablet.dr, 40 MG PO DAILY for 30 Days, #30 TAB Prov:GLADIS SANDOVAL MD 11/02/23 Ketorolac Tromethamine (Ketorolac Tromethamine) 10 Mg Tablet, 10 MG PO BID for 5 Days, #10 TAB Prov:DENA SOLIS 10/13/23 Clindamycin HCl (Clindamycin HCl) 300 Mg Capsule, 1 CAP PO TID for 10 Days, #30 CAP 0 Refills Prov:DENA SOLIS 10/13/23 Amoxicillin/Potassium Clav (Amox Tr-K Clv 875-125 mg Tab) 875 Mg-125 Mg Tablet, 1 EACH PO BID for 10 Days, #20 TAB 0 Refills Prov:DENA SOLIS 09/27/23 Clindamycin HCl (Clindamycin HCl) 300 Mg Capsule, 1 CAP PO QID for 10 Days, #40 CAP 0 Refills Prov:DONATO TUBBS NP 07/12/23 Ibuprofen (Ibuprofen 800 mg Tab) 800 Mg Tab, 800 MG PO Q8H PRN for fever or pain, #30 TAB 0 Refills Prov:DONATO TUBBS NP 07/12/23 Pantoprazole Sodium (Pantoprazole Sodium) 40 Mg Tablet.dr, 40 MG PO DAILY, #30 TAB Prov:GENE WARE MD 01/01/23 Ondansetron HCl (Zofran) 4 Mg/2 Ml Inj, 8 MG SL Q8H, #21 TAB.SL Prov:GENE WARE MD 01/01/23 Acetaminophen (Tylenol Elixir) 325 Mg/10.15 Ml Solution, 500 MG PO Q6HPRN PRN for PAIN, #30 TAB Prov:GENE WARE MD 01/01/23 Cefuroxime Axetil (Cefuroxime) 500 Mg Tablet, 500 MG PO BID, #20 TAB Prov:IRASEMA SANTIAGO MD 11/30/22 Ibuprofen (Motrin/Advil) 800 Mg Tab, 800 MG PO TID, #30 TAB Prov:IRASEMA SANTIAGO MD 11/30/22 Past Medical History Past Medical History: UTI Additional Past Medical Hx: PRE DIABETIC Surgical History: Hysterectomy, Cholecystectomy, Family History: HTN Social History: Smokers, ETOH, Lives with family : 4 Para: 3 Aborts: 1 Review of System Dictation Constitutional: Negative for fever,chills, and weight loss Eyes: Negative for injury, pain,redness, and discharge ENT: Negative for injury,pain or swelling Cardiovascular: Negative for chest pain, palpitations, and edema Respiratory: Negative for shortness of breath, cough, and wheezing, Abdomen/GI: Negative for abdominal pain, nausea, vomiting, diarrhea, and constipation Back: Negative for injury and pain : Negative for injury, bleeding and discharge MS/Extremity: Negative for injury and deformity Skin: Negative for rash, and discoloration Neuro: Negative for headache, weakness, numbness, tingling, and seizure Psych: Negative for suicide ideation, homicidal ideation, and hallucinations Review of Systems: was completed Initial Vital Sign VS Vital Signs Date Time Temp Pulse Resp B/P (MAP) Pulse Ox O2 Delivery O2 Flow Rate FiO2 06/25/24 13:26 98.2 99 14 111/81 100 Room Air 0 06/25/24 14:03 21 Physical Exam Dictation General: awake, alert, NAD Head/Face: Normocephalic, atraumatic Eyes: PERRL, EOMI, vision at baseline ENT: oral cavity clear, TMs clear, no signs of infection Neck: Trachea midline, supple, no nuchal rigidity Cardiovascular: RRR, normal S1/S2, No MRGs, no JVD Respiratory: CTAB, no respiratory distress, No rales or wheezes Abdomen: Soft, non-tender, non-distended, normal bowel sounds, no guarding or rebound. Skin: Warm, dry, normal turgor, no rash MS/Extremity: Pulses equal, no cyanosis, neurovascular intact, FROM Neuro: COAx4, GCS 15, strength 5/5, CN 2-12 intact, normal cerebellar exam, normal gait, Psych: Normal behavior, mood, and affect normal On rectal exam there is a external hemorrhoid noted, nonthrombosed, no melanie blood, no blood in stool or in rectal vault Results (Laboratory/Radiology) Laboratory/Radiology Laboratory Tests Test 06/25/24 13:55 06/25/24 14:10 White Blood Count 8.1 K/uL (4.8-10.8) Red Blood Count 4.57 MIL/uL (4.00-5.50) Hemoglobin 13.4 g/dL (12.0-16.0) Hematocrit 40.7 % (36-48) Mean Corpuscular Volume 89.1 fL (79-99) Mean Corpuscular Hemoglobin 29.3 pg (27.0-33.0) Mean Corpuscular Hemoglobin Concent 32.9 g/dL (32.0-36.0) Red Cell Distribution Width 13.3 % (11.0-15.5) Platelet Count 288 K/uL (130-400) Mean Platelet Volume 9.8 fL (7.5-10.5) Immature Granulocyte % (Auto) 0.2 % (0-1) Neutrophils (%) (Auto) 68.3 % (40.0-77.0) Lymphocytes (%) (Auto) 24.8 % (21.0-51.0) Monocytes (%) (Auto) 5.9 % (3.0-13.0) Eosinophils (%) (Auto) 0.4 % (0.0-8.0) Basophils (%) (Auto) 0.4 % (0.0-5.0) Neutrophils # (Auto) 5.6 K/uL (1.8-7.7) Lymphocytes # (Auto) 2.0 K/uL (1.0-4.8) Monocytes # (Auto) 0.5 K/uL (0.1-1.0) Eosinophils # (Auto) 0.03 K/uL (0.00-0.70) Basophils # (Auto) 0.03 K/uL (0.00-0.20) Absolute Immature Granulocyte (auto 0.02 K/uL (0-1) Nucleated Red Blood Cells 0.0 % (0.0-0.19) Sodium Level 140 mmol/L (136-145) Potassium Level 4.1 mmol/L (3.5-5.1) Chloride Level 103 mmol/L (101-111) Carbon Dioxide Level 29 mmol/L (21-32) Blood Urea Nitrogen 7 mg/dL (7-18) Creatinine 0.8 mg/dL (0.5-1.0) Glomerular Filtration Rate Calc 93 mL/min (>90) Random Glucose 105 mg/dL (70-105) Total Calcium 8.6 mg/dL (8.5-10.1) Lipase 28 U/L (16-77) Stool Occult Blood NEGATIVE (NEGATIVE) Labs Reviewed?: Yes ED Course ED Course Orders Procedure Category Date Status Time Cbc With Differential LAB 06/25/24 Complete 13:48 Basic Metabolic Panel LAB 06/25/24 Complete 13:48 Lipase LAB 06/25/24 Complete 13:48 Occult Blood Stool LAB 06/25/24 Complete Single Only 13:48 Vital Signs Date Time Temp Pulse Resp B/P (MAP) Pulse Ox O2 Delivery O2 Flow Rate FiO2 06/25/24 14:03 98.2 79 14 111/81 100 Room Air* 0 21 06/25/24 13:26 98.2 99 14 111/81 100 Room Air 0 Medical Decision Making MDM MDM: 43-year-old female coming in with complaints of blood when she has a bowel movement. Patient states her stool is not red but there has noticed some drops like Cj-Aid in the water turns pinkish. Patient states it has been going on for a week. Denies any lower abdominal pain. Work unremarkable. External hemorrhoid noted on rectal exam, nonthrombosed. Discussed findings with the patient. Discussed with the patient extensively on increasing hydration, fiber and take him stool softeners. Educated patient to follow up with PCP in 1-2 days and return to hospital symptoms worsen. Patient verbalized understanding, answered all questions. Differential diagnosis: Hemorrhoid, GI bleed, anemia Rationale: Tests considered and ordered secondary to shared decision making include: Previous outside records reviewed: Old ER visits. Risk of complication and/or morbidity or mortality of patient management: None Medications-Per medication reconciliation Need for hospitalization: Patient does not meet criteria for hospitalization. Need for emergency major/minor surgery: No There are no social concerns with this patient. Prescription drug management Prescriptions will include symptomatic care Patient's prior external medical records from other ER visits were reviewed by me as indicated. Prior testing and results from previous visits were reviewed. Prior tests were taken into account with medical decision making and resource utilization, independent historian/historians were used to obtain complete medical history. I independently interpreted the test that were performed, results were reviewed by me and considered findings on radiology if ordered. Medical management and examination interpretation discussions were had by me with other qualified healthcare professionals as indicated for the patient's care. DX & DISP Disposition: Discharge Departure Impression: Primary Impression: Hemorrhoid Condition: Stable Scripts Phenyleph/Pramoxin/Glycr/W.pet (Preparation H Cream) 0.25 %-1 % Cream..g. 1 APPL TP BID for 30 Days, #51 GM 0 Refills Prov: NASRA TYLER STRAIGHT RULING MACHINE OPERATOR 06/25/24 Additional Instructions: Patient fluid intake, increased fiber in your diet, take two a softeners. And follow up with your primary doctor. Referrals: KRISTEN MENDOZA MD (PCP) Time of Disposition: 14:52 I have reviewed the case, and I agree with, Diagnosis and Plan I PERFORMED A SUBSTANTIVE PORTION OF THE VISIT. I HAVE REVIEWED AND PERSONALLY MADE AND APPROVE THE MANAGEMENT PLAN THAT IS DOCUMENTED IN THE NOTE BY MYSELF OR THE AP P. I ACKNOWLEDGE FULL RESPONSIBILITY FOR THE PATIENT'S MANAGEMENT PLAN. NASRA TYLER NP June 25, 2024 14:07
[2024-06-25 14:19] LABS: BASOPHILS # (AUTO) 0.03 K/uL (0.00-0.20); BASOPHILS % (AUTO) 0.4 % (0.0-5.0); EOSINOPHILS # (AUTO) 0.03 K/uL (0.00-0.70); EOSINOPHILS % (AUTO) 0.4 % (0.0-8.0); HEMATOCRIT 40.7 % (36-48); IMMATURE GRANULOCYTE ABSOLUTE 0.02 K/uL (0-1); LYMPHOCYTES % (AUTO) 24.8 % (21.0-51.0); MEAN CORPUSCULAR HEMOGLOBIN 29.3 pg (27.0-33.0); MEAN CORPUSCULAR HGB CONC 32.9 g/dL (32.0-36.0); MEAN CORPUSCULAR VOLUME 89.1 fL (79-99); MONOCYTES # (AUTO) 0.5 K/uL (0.1-1.0); MONOCYTES % (AUTO) 5.9 % (3.0-13.0); NEUTROPHILS # (AUTO) 5.6 K/uL (1.8-7.7); NEUTROPHILS % (AUTO) 68.3 % (40.0-77.0); PLATELET COUNT (AUTO) 288 K/uL (130-400); RED BLOOD CELL COUNT(AUTO) 4.57 MIL/uL (4.00-5.50); RED CELL DISTRIBUTION WIDTH 13.3 % (11.0-15.5); WHITE BLOOD COUNT (AUTO) 8.1 K/uL (4.8-10.8)
[2024-06-25 14:27] LABS: CREATININE 0.8 mg/dL (0.5-1.0); POTASSIUM 4.1 mmol/L (3.5-5.1)
[2024-06-25] MEDS ORDERED: PHEN26CR2 TP (14:51)
[2024-06-25 15:33] VITALS: BP 140/87; PULSE 100; RESP 16; O2SAT 99
== END 2024-06-25 15:35 | disposition home or self-care (01) ==
LOC: EDH 13:11
DX: K64.9 Unspecified hemorrhoids (principal); F17.200 Nicotine dependence, unspecified, uncomplicated; Z79.1 Long term (current) use of non-steroidal anti-inflammatories (NSAID); Z79.899 Other long term (current) drug therapy; Z90.710 Acquired absence of both cervix and uterus; Z90.49 Acquired absence of other specified parts of digestive tract
CPT/HCPCS: 36415; 80048; 82270; 82272; 83690; 85025; 99283